=== PATIENT | male | born 1995 | race Caucasian/White ===

== ENCOUNTER 2017-12-27 15:06 | Emergency (ER) | payer MEDICAID, OTHER ==
[~2017-12-27] VITALS: Ht 180.3 cm; Wt 72.0 kg
[~2017-12-27 15:06] MED LIST: ALBU8.5H8 INH; AZIT500T5 PO; FLUT16SP26 BOTHNARES; GUAI600T89 PO
[2017-12-27 15:16] VITALS: BP 144/85
[2017-12-27] MEDS ORDERED: AZIT250T PO (16:37)
== END 2017-12-27 16:44 | disposition home or self-care (01) ==
LOC: ER 15:07
DX: J20.9 Acute bronchitis, unspecified (principal); Z87.891 Personal history of nicotine dependence; Z88.2 Allergy status to sulfonamides; Z79.899 Other long term (current) drug therapy
CPT/HCPCS: 99283

== ENCOUNTER 2022-05-20 01:48 | Emergency (ER) | payer MEDICAID ==
[~2022-05-20] VITALS: Ht 180.3 cm; Wt 68.2 kg
[~2022-05-20 01:48] MED LIST changes: +ALBU8.5H17 INH; -ALBU8.5H8 INH; +AZIT250T PO; -AZIT500T5 PO; +AZIT500T9 PO
[2022-05-20 02:14] VITALS: BP 106/84
== END 2022-05-20 03:01 | disposition left against medical advice (07) ==
LOC: ER 01:49
DX: M79.643 Pain in unspecified hand (principal); M79.606 Pain in leg, unspecified; Z53.21 Procedure and treatment not carried out due to patient leaving prior to being seen by health care provider

== ENCOUNTER 2022-05-20 04:35 | Emergency (ER) | payer MEDICAID ==
[~2022-05-20] VITALS: Ht 180.3 cm; Wt 68.2 kg
[2022-05-20 04:38] VITALS: BP 106/84
--- NOTE | 2022-05-20 06:34 | NUR ---
to room 7
--- NOTE | 2022-05-20 06:46 | NUR ---
PT STATES HE WANTS A FULL CHECK UP. PT WANTS BLOOD WORK, STD CHECK, COVID TEST, "EVERYTHING". PT STATES HIS SKIN ON HIS HANDS AND FEET ARE PEELING SO "OBVIOUSLY IM LOSING RED BLOOD CELLS". PT STATES HE WENT TO [facility] YESTERDAY BUT THEY JUST DIDDNT TAKE HIM SERIOUSLY. PTS VITALS ARE WNL. APPEARS TO BE IN NO ACUTE DISTRESS. APPEARS TO HAVE SOME MACERATION TO HIS FEET AND TOES. EDUCATED THE PT ON IMPORTANCE OF KEEPING HIS FEET CLEAN AND DRY.
== END 2022-05-20 08:24 | disposition home or self-care (01) ==
LOC: ER 04:35
DX: L84 Corns and callosities (principal); F12.10 Cannabis abuse, uncomplicated; F19.10 Other psychoactive substance abuse, uncomplicated; Z00.00 Encounter for general adult medical examination without abnormal findings; Z71.51 Drug abuse counseling and surveillance of drug abuser; Z88.2 Allergy status to sulfonamides
CPT/HCPCS: 99281

== ENCOUNTER 2022-06-12 11:35 | Emergency (ER) | payer MEDICAID ==
[~2022-06-12] VITALS: Ht 180.3 cm; Wt 68.2 kg
[2022-06-12 11:49] VITALS: BP 121/81
== END 2022-06-12 13:54 | disposition home or self-care (01) ==
LOC: ER 11:36
DX: F20.9 Schizophrenia, unspecified (principal); Z88.2 Allergy status to sulfonamides; Z79.899 Other long term (current) drug therapy; Z79.1 Long term (current) use of non-steroidal anti-inflammatories (NSAID)
CPT/HCPCS: 99281